=== PATIENT | female | born 1990 | race Two or more races ===

== ENCOUNTER 2016-04-12 02:39 | Emergency (ER) | payer OTHER, MEDICAID ==
[2016-04-12 04:32] LABS: ABSOLUTE NEUTROPHIL COUNT 11.7 K/mm3 (1.8-7.7); BASO % 0.2 % (0.2-1.0); EOS # 0.2 (0.0-0.5); EOS % 1.1 % (0.9-2.9); HEMATOCRIT 35.5 % (37.0-47.0); HEMOGLOBIN 12.1 gm/l (12.0-16.0); IMM NEUT # 0.1 K/mm3 (0-0.2); IMM NEUT% 0.5 % (0-1); LYMPH % 13.4 % (15-45); MEAN CELL VOLUME 89.4 fl (81.0-99.0); MEAN CORPUSCULAR HEMOGLOBIN 30.5 pg (27.0-31.0); MEAN CORPUSCULAR HGB CONC 34.1 g/dl (33.0-37.0); MONO # 0.8 (0.0-0.8); MONO % 5.5 % (4-12); NEUT % 79.3 % (43-75); PLATELET COUNT 141 K/mm3 (130-400); RED CELL DISTRIBUTION WIDTH 12.8 % (11.5-14.5)
[2016-04-12 04:37] LABS: URINE BILIRUBIN NEGATIVE (NEGATIVE); URINE BLOOD 2+ (NEGATIVE); URINE GLUCOSE (UA) NEGATIVE (NEGATIVE); URINE LEUKOCYTE ESTERASE NEGATIVE (NEGATIVE); URINE NITRITE NEGATIVE (NEGATIVE); URINE PROTEIN NEGATIVE (NEGATIVE); URINE UROBILINOGEN NORMAL (0-1 mg/dl)
[2016-04-12 04:47] LABS: URINE APPEARANCE CLEAR; URINE COLOR YELLOW
[2016-04-12 04:55] LABS: URINE BACTERIA 0; URINE RBC 15-20 /hpf
[2016-04-12 05:15] LABS: ALB/GLOB RATIO 1.2 (>1.0); ALBUMIN 3.6 gm/dL (3.5-5.7); CALCIUM 8.9 mg/dL (8.6-10.3)
--- NOTE | 2016-04-12 09:53 | US ---
Exam: Limited obstetric ultrasound greater than 14 weeks COMPARISON: None INDICATION: , low abdominal pain, tearing sensation. Findings: Emergent limited obstetric ultrasound greater than 14 weeks was obtained. Real-time sonographic imaging demonstrated a single live intrauterine with a heart rate of 136 bpm. The placenta is located on the left side of the uterus and there are no retroplacental fluid collections to suggest abruption. Amniotic fluid volume is subjectively normal. IMPRESSION: Single live intrauterine with a heart rate of 136 bpm. Left lateral placenta without sonographic evidence of abruption. Preliminary report transmitted to the emergency department from [facility] at 0545 hours 04/12/2016.
[2016-04-14 08:32] LABS: CHLAMYDIA BD Negative (Negative); N.GONORRHOEAE BD Negative (Negative); SOURCE Urine (())
== END 2016-04-12 06:14 | disposition home or self-care (01) ==
LOC: ED 02:39
DX: O20.0 Threatened abortion (principal); Z3A.14 14 weeks gestation of pregnancy